=== PATIENT | male | born 2000 | race Native Hawaiian/Other Pacific Islander ===

== ENCOUNTER 2021-08-10 09:39 | Outpatient (CLI) | payer OTHER | END 2021-08-10 19:33 | disposition home or self-care (01) | LOC: US 09:39 | PROVIDERS: ATTEND Nurse Practitioner Family | DX: I10 Essential (primary) hypertension (principal) ==

== ENCOUNTER 2022-05-25 13:13 | Emergency (ER) | payer OTHER ==
[~2022-05-25] VITALS: Ht 180.3 cm; Wt 113.4 kg
[2022-05-25 13:13] VITALS: BP 121/42; TEMP 98.7
== END 2022-05-25 13:50 | disposition home or self-care (01) ==
LOC: ED 13:13
PROC: 0HQEXZZ Repair Left Lower Arm Skin, External Approach (ICD-10-PCS; principal; 2022-05-25)
DX: S61.512A Laceration without foreign body of left wrist, initial encounter (principal); W27.8XXA Contact with other nonpowered hand tool, initial encounter; Y92.89 Other specified places as the place of occurrence of the external cause
CPT/HCPCS: 99282; 99283

== ENCOUNTER 2022-10-21 17:04 | Emergency (ER) | payer OTHER ==
[~2022-10-21] VITALS: Ht 180.3 cm; Wt 117.9 kg
[2022-10-21 18:00] VITALS: BP 151/89; TEMP 98.3
== END 2022-10-21 18:00 | disposition home or self-care (01) ==
LOC: ED 17:04
DX: S01.511A Laceration without foreign body of lip, initial encounter (principal); X58.XXXA Exposure to other specified factors, initial encounter
CPT/HCPCS: 99283